=== PATIENT | male | born 2000 | race Caucasian/White ===

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

== ENCOUNTER 2022-04-28 09:07 | Inpatient (IN) | payer MEDICAID ==
[~2022-04-28] VITALS: Ht 182.9 cm; Wt 77.3 kg
[~2022-04-28 09:07] MED LIST: INSLANTI SC; INSLISPI SC
[2022-04-28] MEDS ORDERED: INSULIN LANTUS (GLARGINE) 1 /0.01ml (100units/ml) SC ONE (09:45)
[2022-04-28] MEDS ORDERED: InsuLIN R (HUMAN) 100 UNITS in SODIUM CHL 0.9% 99 ML IV SCH (09:45)
[2022-04-28] MEDS ORDERED: DEXTROSE (50%) 50ML SYRG IV PRN ×2 (09:45→16:30)
[2022-04-28 09:52] LABS: Basophils # (auto) 0 10 ^3/uL (0-0.2); Basophils % (auto) 0.5 % (0.0-2.0); Eosinophils # (auto) 0.1 10 ^3/uL (0-0.8); Eosinophils % (auto) 0.8 % (0.0-7.0); Hematocrit 46.8 % (41.0-53.0); Hemoglobin 15.3 g/dL (13.5-17.5); Lymphocytes # (auto) 1.7 10 ^3/uL (0.4-5.4); Lymphocytes % (auto) 21.3 % (10.0-50.0); Mean Corpuscular Hemoglobin 28.6 pg (28.0-32.0); Mean Corpuscular Hgb Conc. 32.8 g/dL (32.0-36.0); Mean Corpuscular Volume 87.2 fL (80.0-100.0); Monocytes # (auto) 0.4 10 ^3/uL (0-1.3); Monocytes % (auto) 4.5 % (0.0-12.0); Neutrophils % (auto) 72.9 % (37.0-80.0); Nucleated Red Blood Cells % 0.1 %; Red Blood Cells 5.36 10^6/uL (4.5-5.90); Red Cell Distribution Width 12.5 % (11.8-14.3); White Blood Cell 8.2 10^3/uL (4.4-10.8)
[2022-04-28 10:03] LABS: Albumin 4.8 g/dL (3.4-5.0); Calcium 9.6 mg/dL (8.5-10.1); Potassium 4.8 mmol/L (3.5-5.1)
[2022-04-28 10:08] LABS: BUN/Creatinine Ratio 18.3; Bilirubin, Total 1.3 mg/dL (0.2-1.0); Total Protein 8.7 g/dL (6.4-8.2)
[2022-04-28] MEDS: ACCU-CHEK COMFORT CURVE STRIP VI SCH ×10 (10:49→23:51)
[2022-04-28] MEDS ORDERED: ONDANSETRON HCL 4 MG/2 ML VIAL IV ONE (11:30)
[2022-04-28] MEDS ORDERED: SODIUM CHLORIDE 0.9% 1,000 ML IV ONE (11:30)
[2022-04-28] MEDS ORDERED: HYDROcodone-ACET 10/325MG TAB PO ONE (13:00)
[2022-04-28 14:39] LABS: Urine Bacteria NONE SEEN /hpf (None Seen); Urine Blood Negative /uL (Negative); Urine Specific Gravity 1.021 (1.001-1.035); Urine WBC <1 /hpf (0 - 3)
[2022-04-28 15:15] LABS: Alcohol, Urine < 3.0 mg/dL (0-10); Amphetamine Screen, Urine NEGATIVE (NEGATIVE); Barbiturate Scree,Urine NEGATIVE (NEGATIVE); Benzodiazephine Screen, Urine NEGATIVE (NEGATIVE); Cannabinoid Screen, Urine POSITIVE (NEGATIVE); Cocaine Screen, Urine NEGATIVE (NEGATIVE); Opiate Scree,Urine NEGATIVE (NEGATIVE); Phencyclidine Screen, Urine NEGATIVE (NEGATIVE)
[2022-04-28] MEDS ORDERED: ONDANSETRON HCL 4 MG/2 ML VIAL IV PRN (16:30)
[2022-04-28] MEDS ORDERED: NITROGLYCERIN 0.4 MG SL TAB SL PRN (16:30)
[2022-04-28] MEDS ORDERED: MORPHINE SULFATE INJ 2 MG/ml SYRG IV PRN ×2 (16:30)
[2022-04-28] MEDS ORDERED: D5W/SOD CHL 0.45%/KCL 20MEQ 1,000 ML IV SCH (16:30)
[2022-04-28] MEDS ORDERED: POTASSIUM CHL 20MEQ/100ML 100 ML IV PRN (16:30)
[2022-04-28] MEDS ORDERED: POTASSIUM CHL 20MEQ/100ML 200 ML IV PRN (16:30)
[2022-04-28] MEDS: SODIUM CHLORIDE 0.9% 1,000 ML IV SCH ×2 (16:56→18:30)
[2022-04-28 17:36] LABS: Magnesium 2.3 mg/dL (1.6-2.6); Phosphorus 3.4 mg/dL (2.5-4.90)
[2022-04-28 19:24] LABS: BUN/Creatinine Ratio 16.3; Calcium 9.2 mg/dL (8.5-10.1); Potassium 4.7 mmol/L (3.5-5.1)
[2022-04-28] MEDS: D5W/SOD CHL 0.45%/KCL 20MEQ 1,000 ML IV SCH ×2 (19:30→22:13)
[2022-04-28] MEDS: SOD CHL 0.9%/ KCL 20MEQ 1,000 ML IV SCH ×2 (19:31→23:44)
[2022-04-28] MEDS ORDERED: SODIUM BICARBONATE 8.4 % INJ 50ML VIAL IV ONE (20:00)
[2022-04-28] MEDS ORDERED: SODIUM CHLORIDE 0.9% 1,000 ML IV SCH ×2 (20:30→22:30)
[2022-04-28 23:10] LABS: BUN/Creatinine Ratio 16.8; Calcium 8.1 mg/dL (8.5-10.1); Potassium 4.2 mmol/L (3.5-5.1)
[2022-04-29] MEDS ORDERED: D5W/SOD CHL 0.45% 1,000 ML IV SCH (00:45)
[2022-04-29] MEDS ORDERED: DEXTROSE (50%) 50ML SYRG IV PRN (00:45)
[2022-04-29] MEDS: ACCU-CHEK COMFORT CURVE STRIP VI SCH ×3 (04:03→11:41)
[2022-04-29] MEDS: InsuLIN REG 1unit/0.01ml Soln (100units/ml) SC SCH ×3 (04:08→12:05)
[2022-04-29] MEDS ORDERED: SODIUM CHLORIDE 0.9% 1,000 ML IV SCH (07:45)
[2022-04-29 08:45] LABS: Basophils # (auto) 0 10 ^3/uL (0-0.2); Basophils % (auto) 0.2 % (0.0-2.0); Eosinophils # (auto) 0 10 ^3/uL (0-0.8); Eosinophils % (auto) 0.3 % (0.0-7.0); Hematocrit 39.8 % (41.0-53.0); Lymphocytes # (auto) 1.4 10 ^3/uL (0.4-5.4); Lymphocytes % (auto) 9.4 % (10.0-50.0); Mean Corpuscular Hemoglobin 27.9 pg (28.0-32.0); Mean Corpuscular Hgb Conc. 32.7 g/dL (32.0-36.0); Mean Corpuscular Volume 85.3 fL (80.0-100.0); Monocytes % (auto) 6.8 % (0.0-12.0); Neutrophils # (auto) 12.5 10 ^3/uL (1.6-8.6); Neutrophils % (auto) 83.3 % (37.0-80.0); Red Blood Cells 4.66 10^6/uL (4.5-5.90); Red Cell Distribution Width 12.4 % (11.8-14.3)
[2022-04-29 08:57] LABS: Albumin 3.7 g/dL (3.4-5.0); Calcium 8.4 mg/dL (8.5-10.1); Potassium 3.8 mmol/L (3.5-5.1)
[2022-04-29 09:01] LABS: Bilirubin, Total 0.9 mg/dL (0.2-1.0); Total Protein 6.8 g/dL (6.4-8.2)
[2022-04-29] MEDS ORDERED: PANTOPRAZOLE 40 MG/10 ML VIAL INJ IV SCH (10:00)
[2022-04-29] MEDS ORDERED: INSULIN LANTUS (GLARGINE) 1 /0.01ml (100units/ml) SC SCH ×2 (10:00)
[2022-04-29] MEDS ORDERED: ENOXAPARIN SOD 30 MG/0.3 ML SYRINGE SC SCH (10:00)
[2022-04-29 13:00] VITALS: BP 111/59
== END 2022-04-29 15:30 | disposition left against medical advice (07) | DRG 420 ==
LOC: EDBD 09:07 → ER 09:07 → TELE 16:35 → TELE-WESTW 04-29 09:07
PROVIDERS: ADMIT Registered Nurse; ATTEND Hospitalist
DX: E10.10 Type 1 diabetes mellitus with ketoacidosis without coma (principal); E10.65 Type 1 diabetes mellitus with hyperglycemia; J45.909 Unspecified asthma, uncomplicated; Z96.41 Presence of insulin pump (external) (internal); Z53.29 Procedure and treatment not carried out because of patient's decision for other reasons; Z20.822 Contact with and (suspected) exposure to COVID-19; Z79.4 Long term (current) use of insulin
CPT/HCPCS: 36415; 36600; 80048; 80053; 80307; 81001; 82010; 82805; 82962; 83735; 83930; 84100; 84484; 85025; 93005; 96361; 96372; 96374; C9113; G0378; J1815; J2405

== ENCOUNTER 2022-12-09 23:54 | Emergency (ER) | payer MEDICAID ==
[~2022-12-09] VITALS: Ht 182.9 cm; Wt 77.3 kg
[2022-12-10] MEDS ORDERED: ACETAMINOPHEN 500 MG TAB PO ONE (00:15)
[2022-12-10] MEDS ORDERED: TETANUS-DIPTH-ACEL PERTUSSIS 0.5ML SYR Tdap IM ONE (03:45)
[2022-12-10 03:57] VITALS: BP 136/65
[2022-12-10] MEDS ORDERED: CEPH-510 PO (04:00)
== END 2022-12-10 04:11 | disposition home or self-care (01) ==
LOC: ER 23:54 → EDBD 23:54 → ER 12-10 04:10
DX: S61.210A Laceration without foreign body of right index finger without damage to nail, initial encounter (principal); E11.9 Type 2 diabetes mellitus without complications; F12.10 Cannabis abuse, uncomplicated; W26.0XXA Contact with knife, initial encounter; Y93.89 Activity, other specified; Y92.89 Other specified places as the place of occurrence of the external cause; Y99.8 Other external cause status
CPT/HCPCS: 12002; 73120; 90471; 90715

== ENCOUNTER 2022-12-14 15:53 | Emergency (ER) | payer MEDICAID ==
[~2022-12-14] VITALS: Ht 182.9 cm; Wt 73.0 kg
[~2022-12-14 15:53] MED LIST changes: +CEPH-510 PO
[2022-12-14 17:36] VITALS: BP 145/96
[2022-12-14] MEDS ORDERED: BACDST PO (17:46)
== END 2022-12-14 17:58 | disposition home or self-care (01) ==
LOC: ER 15:53
DX: L03.011 Cellulitis of right finger (principal); E11.9 Type 2 diabetes mellitus without complications; F12.90 Cannabis use, unspecified, uncomplicated; Z79.899 Other long term (current) drug therapy; Z79.4 Long term (current) use of insulin

== ENCOUNTER 2022-12-20 12:37 | Emergency (ER) | payer MEDICAID ==
[~2022-12-20] VITALS: Ht 182.9 cm; Wt 73.8 kg
[~2022-12-20 12:37] MED LIST changes: +BACDST PO
[2022-12-20 13:11] VITALS: BP 133/66
== END 2022-12-20 14:52 | disposition home or self-care (01) ==
LOC: ER 12:37
DX: S61.210D Laceration without foreign body of right index finger without damage to nail, subsequent encounter (principal); E11.9 Type 2 diabetes mellitus without complications; X58.XXXD Exposure to other specified factors, subsequent encounter

== ENCOUNTER 2024-03-06 12:16 | Emergency (ER) | payer MEDICAID ==
[~2024-03-06] VITALS: Ht 182.9 cm; Wt 86.1 kg
[2024-03-06 14:51] VITALS: BP 132/72; PULSE 82; RESP 18; TEMP 97.5; O2SAT 100
[2024-03-06] MEDS ORDERED: MELO7.5T7 PO (15:00)
[2024-03-06] MEDS: KETOROLAC TROMETH 30 MG/ML 1ML VIAL IM ONE (15:24)
== END 2024-03-06 15:52 | disposition home or self-care (01) ==
LOC: ER 12:16
DX: M23.91 Unspecified internal derangement of right knee (principal); E11.9 Type 2 diabetes mellitus without complications; F12.10 Cannabis abuse, uncomplicated
CPT/HCPCS: 73562; 96372; 99283; J1885

== ENCOUNTER 2024-05-28 04:24 | Inpatient (IN) | payer MEDICAID ==
[~2024-05-28] VITALS: Ht 172.7 cm; Wt 76.4 kg
[~2024-05-28 04:24] MED LIST changes: +MELO7.5T7 PO
[2024-05-28] MEDS: SODIUM CHLORIDE 0.9% 1,000 ML IV ONE (05:22)
[2024-05-28 05:30] VITALS: PULSE 62; RESP 16; O2SAT 97
[2024-05-28] MEDS: ONDANSETRON HCL 4 MG/2 ML VIAL IV ONE ×2 (05:30→09:39)
[2024-05-28 06:34] LABS: Alkaline Phosphatase 32 U/L (46-116); Anion Gap 8 (5-15); Aspartate Aminotransferase < 8 U/L (13-40); BUN/Creatinine Ratio 21.3 (10.0-20.0); Blood Urea Nitrogen 10 mg/dL (9-23); Carbon Dioxide 19 mmol/L (20-31); Chloride 122 mmol/L (98-107); Glucose 74 mg/dL (74-106); Sodium 149 mmol/L (136-145)
[2024-05-28 06:35] LABS: Albumin 2.6 g/dL (3.2-4.8); Bilirubin, Total 0.3 mg/dL (0.2-1.0)
[2024-05-28 06:42] LABS: Alanine Aminotransferase < 9 U/L (7-40)
[2024-05-28 06:43] LABS: Basophils # (auto) 0 10 ^3/uL (0-0.2); Basophils % (auto) 0.3 % (0.0-2.0); Calcium 5.6 mg/dL (8.7-10.4); Eosinophils # (auto) 0.2 10 ^3/uL (0-0.8); Eosinophils % (auto) 3.8 % (0.0-7.0); Hematocrit 32.5 % (41.0-53.0); Hemoglobin 11.4 g/dL (13.5-17.5); Lymphocytes % (auto) 44.6 % (10.0-50.0); Mean Corpuscular Hemoglobin 30.2 pg (28.0-32.0); Mean Corpuscular Hgb Conc. 35.2 g/dL (32.0-36.0); Mean Corpuscular Volume 85.9 fL (80.0-100.0); Monocytes # (auto) 0.4 10 ^3/uL (0-1.3); Monocytes % (auto) 9.2 % (0.0-12.0); Neutrophils # (auto) 1.9 10 ^3/uL (1.6-8.6); Neutrophils % (auto) 42.1 % (37.0-80.0); Platelet Count (auto) 214 10^3/uL (140-450); Potassium 2.1 mmol/L (3.5-5.1); Red Blood Cells 3.79 10^6/uL (4.5-5.90); Red Cell Distribution Width 12.8 % (11.8-14.3); White Blood Cell 4.6 10^3/uL (4.4-10.8)
[2024-05-28 08:07] VITALS: PULSE 59; RESP 16; O2SAT 97
[2024-05-28] MEDS: POTASSIUM CHL 20MEQ/100ML 100 ML IV ONE ×2 (09:40→12:32)
[2024-05-28] MEDS ORDERED: MORPHINE SULFATE INJ 2 MG/ml SYRG IV PRN (12:00)
[2024-05-28] MEDS ORDERED: NITROGLYCERIN 0.4 MG SL TAB SL PRN (12:00)
[2024-05-28] MEDS ORDERED: ACETAMINOPHEN 325 MG TAB PO PRN (12:00)
[2024-05-28] MEDS ORDERED: ONDANSETRON HCL 4 MG/2 ML VIAL IV PRN (12:00)
[2024-05-28] MEDS ORDERED: DEXTROSE (50%) 50ML SYRG IV PRN (12:15)
[2024-05-28] MEDS: SODIUM CHLORIDE 0.9% 1,000 ML IV SCH (12:15)
[2024-05-28 12:18] LABS: Urine Bacteria None Seen /hpf (None Seen)
[2024-05-28 12:48] LABS: Urine Blood Negative /uL (Negative); Urine Clarity Clear (Clear); Urine Color Light-Yellow (Yellow); Urine Mucus FEW (None Seen); Urine Protein, UAD TRACE (Negative); Urine Specific Gravity 1.019 (1.001-1.035); Urine Urobilinogen Normal (Negative); Urine WBC 7 /hpf (0 - 3); Urine pH 5.5 (5.0-9.0)
[2024-05-28 12:56] LABS: Amphetamine Screen, Urine Neg (NEGATIVE)
[2024-05-28 12:57] LABS: Barbiturate Scree,Urine Neg (NEGATIVE); Benzodiazephine Screen, Urine Neg (NEGATIVE); Cannabinoid Screen, Urine Pos (NEGATIVE); Cocaine Screen, Urine Neg (NEGATIVE); Opiate Scree,Urine Neg (NEGATIVE); Phencyclidine Screen, Urine Neg (NEGATIVE)
[2024-05-28] MEDS: CALCIUM CARB 500 MG CHEW TAB PO ONE (14:39)
[2024-05-28] MEDS: InsuLIN REG 1unit/0.01ml Soln (100units/ml) SC SCH (17:00)
[2024-05-28] MEDS: ACCU-CHEK COMFORT CURVE STRIP VI SCH (17:00)
[2024-05-28] MEDS: POTASSIUM CHL 20 Meq TABLET PO ONE (17:47)
[2024-05-28 17:48] LABS: Alanine Aminotransferase 10 U/L (7-40); Albumin 4.1 g/dL (3.2-4.8); Alkaline Phosphatase 51 U/L (46-116); Anion Gap 7 (5-15); Aspartate Aminotransferase 9 U/L (13-40); BUN/Creatinine Ratio 10.5 (10.0-20.0); Bilirubin, Total 0.7 mg/dL (0.2-1.0); Blood Urea Nitrogen 9 mg/dL (9-23); Carbon Dioxide 27 mmol/L (20-31); Chloride 107 mmol/L (98-107); Glucose 76 mg/dL (74-106); Potassium 3.9 mmol/L (3.5-5.1); Sodium 141 mmol/L (136-145); Total Protein 6.7 g/dL (5.7-8.2)
[2024-05-28 19:30] VITALS: PULSE 71; RESP 11; O2SAT 100
[2024-05-28 20:00] VITALS: PULSE 66; RESP 20
[2024-05-28 22:16] VITALS: BP 122/73; PULSE 66; RESP 18; TEMP 98; O2SAT 99
[2024-05-29] MEDS ORDERED: INSU1INJ14 SC (02:34)
[2024-05-29] MEDS ORDERED: INSU100I4 SC (02:36)
[2024-05-29 07:07] LABS: Chloride 107 mmol/L (98-107); Potassium 3.5 mmol/L (3.5-5.1); Sodium 143 mmol/L (136-145)
[2024-05-29 07:08] LABS: Anion Gap 6 (5-15); Carbon Dioxide 30 mmol/L (20-31)
[2024-05-29 07:09] LABS: Calcium 9.6 mg/dL (8.7-10.4)
[2024-05-29 07:13] LABS: BUN/Creatinine Ratio 7.8 (10.0-20.0); Blood Urea Nitrogen 7 mg/dL (9-23); Glucose 102 mg/dL (74-106)
[2024-05-29 07:14] LABS: Basophils # (auto) 0 10 ^3/uL (0-0.2); Basophils % (auto) 0.3 % (0.0-2.0); Eosinophils # (auto) 0.2 10 ^3/uL (0-0.8); Eosinophils % (auto) 2.9 % (0.0-7.0); Hematocrit 37.9 % (41.0-53.0); Hemoglobin 13.1 g/dL (13.5-17.5); Mean Corpuscular Hemoglobin 29.5 pg (28.0-32.0); Mean Corpuscular Hgb Conc. 34.4 g/dL (32.0-36.0); Mean Corpuscular Volume 85.6 fL (80.0-100.0); Monocytes # (auto) 0.4 10 ^3/uL (0-1.3); Monocytes % (auto) 8.6 % (0.0-12.0); Neutrophils # (auto) 2.6 10 ^3/uL (1.6-8.6); Neutrophils % (auto) 50.2 % (37.0-80.0); Nucleated Red Blood Cells % 0.1 %; Platelet Count (auto) 270 10^3/uL (140-450); Red Blood Cells 4.43 10^6/uL (4.5-5.90); Red Cell Distribution Width 12.4 % (11.8-14.3); White Blood Cell 5.2 10^3/uL (4.4-10.8)
[2024-05-29 08:30] VITALS: PULSE 60; PULSE 72; RESP 18; O2SAT 99
[2024-05-29 09:04] VITALS: BP 113/63; PULSE 60; RESP 20; TEMP 97.9; O2SAT 99
[2024-05-29 10:25] LABS: Folate (Folic Acid) 8.01 ng/mL (>5.38)
[2024-05-29] MEDS ORDERED: ERGOCALCIFEROL 50,000 UNIT(1.25MG) CAP PO SCH (11:15)
[2024-05-29 11:25] VITALS: TEMP 36.6
[2024-05-29] MEDS: POTASSIUM EFFERVESENT TAB 25 MEQ PO ONE (12:11)
[2024-05-29 13:00] VITALS: BP 109/64; PULSE 88; RESP 20; TEMP 97.7; O2SAT 98
== END 2024-05-29 14:23 | disposition home or self-care (01) | DRG 422 ==
LOC: EDBD 04:24 → ER 04:24 → TELE 11:59 → TELE-E-ADS 22:00
PROVIDERS: ADMIT Internal Medicine; ATTEND Internal Medicine
DX: E87.6 Hypokalemia (principal); E86.0 Dehydration; E10.649 Type 1 diabetes mellitus with hypoglycemia without coma; E83.51 Hypocalcemia; J45.909 Unspecified asthma, uncomplicated; F12.90 Cannabis use, unspecified, uncomplicated; Z79.4 Long term (current) use of insulin; Z82.49 Family history of ischemic heart disease and other diseases of the circulatory system
CPT/HCPCS: 36415; 80048; 80053; 80307; 81001; 82010; 82306; 82607; 82746; 82962; 83036; 83735; 85025; 96365; 96375; G0378; J1815; J2405; J3480